=== PATIENT | male | born 2000 | race Caucasian/White ===

== ENCOUNTER 2021-06-25 13:57 | Emergency (ER) | payer OTHER, SELFPAY ==
--- NOTE | ~2021-06-25 | CT_ITS ---
EXAMINATION: CTA chest PE abdomen pel DATE: 06/25/2021 16:10 FAMILY PRACTICE MD INDICATION: Shortness of breath. TECHNIQUE: Computed tomographic angiography (CTA) of the chest was performed with 100 mL Omnipaque-35 0 intravenous contrast. The dose-length product was 548.71 mGy-cm. Maximum intensity projection 3D-re constructions of the aorta and other arteries were constructed by the technologist on a separate work station. COMPARISON: None. FINDINGS: Study is technically adequate without evidence for pulmonary embolism. No evidence for aort ic aneurysm or dissection. Heart size is normal. No thoracic lymphadenopathy. There are reticulonodul ar densities in the lingula, most likely infectious. No pneumothorax. No endobronchial lesions. No ac blair osseous abnormality. IMPRESSION: 1. Reticulonodular densities of the lingula, most likely infectious. 2: No evidence for pulmonary embolism. Reviewed, dictated and finalized at location A. LY PRACTICE MD
[2021-06-25 14:04] VITALS: BP 135/64; PULSE 86; RESP 18; TEMP 36.9; O2SAT 99
--- NOTE | 2021-06-25 14:06 | ECG_ITS ---
Measurements Intervals [place] Rate: 85 P: -87 GA: 128 QRS: 81 QRSD: 87 T: 56 QT: 348 QTc: 416 Interpretive Statements ECTOPIC ATRIAL RHYTHM NONSPECIFIC ST ELEVATION IN ANTEROLAT/INF LEADS BASELINE WANDER- II, III ABNORMAL ECG Electronically Signed On 06-25-2021 17:36:41 SURG RN by Jimmy Gifford D.O.
[2021-06-25 14:28] LABS: Basophils Percent Auto 0.5 % (0.2-1.2); Eosinophils Absolute Auto 0.2 K/mm3 (0-0.3); Eosinophils Percent Auto 4.7 % (0-4.4); Hematocrit 43.2 % (42.0-52.0); Immature Granulocyte Absolute 0.01 K/mm3 (0.00-0.031); Immature Granulocyte Percent A 0.2 % (0-0.5); Lymphocytes Absolute Auto 1.45 K/mm3 (0.9-3.2); Lymphocytes Percent Auto 36.1 % (18.3-44.2); Mean Corpuscular HGB Conc 34.7 g/dl (32-36); Mean Corpuscular Volume 89.3 fl (80-100); Mean Platelet Volume 9.7 fl (7.4-10.4); Monocytes Absolute Auto 0.6 K/mm3 (0.1-0.6); Monocytes Percent Auto 14.9 % (2.6-8.5); Neutrophils Absolute Auto 1.8 K/mm3 (1.3-6.7); Neutrophils Percent Auto 43.6 % (45.5-73.1); Platelet Count Result 190 k/mm3 (150-375); Red Blood Count 4.84 M/mm3 (4.6-6.20); Red Cell Distribution Width 11.9 % (11.5-14.5)
[2021-06-25 14:31] LABS: Add Urine Microscopic? YES; Appearance Urine Cloudy (Clear); Bilirubin Urine Negative (Negative); Blood Urine Negative (Negative); Color Urine Yellow (Yellow); Glucose Urine UA 1+ mg/dL (Negative); Ketones Urine Negative (Negative); Leukocyte Esterase Ur Negative LEU/UL (Negative); Nitrate Urine Negative (Negative); Protein Urine Negative (Negative); RBC Urine 0-2 /hpf (0-2); Specific Grav Ur 1.019 (1.001-1.035); Urobilinogen Urine Negative mg/dL (<2.0); WBC Urine 0-3 /hpf
[2021-06-25 14:39] LABS: Alanine Aminotransferase 22 U/L (4-50); Albumin Level 4.5 g/dL (3.7-5.6); Alkaline Phosphatase 52 U/L (58-237); Anion Gap 6 mmol/L (8-16); Aspartate Amino Transferase 27 U/L (17-59); Bilirubin,Total 0.4 mg/dL (0.2-1.3); Blood Urea Nitrogen 12 mg/dL (8-21); Calcium 9.5 mg/dL (8.9-10.7); Carbon Dioxide 26 mmol/L (22-30); Chloride 104 mmol/L (98-107); Estimated CRCL calculation 120 ml/min; Estimated Glomerular Filt Rate > 60; Glucose 77 mg/dL (65-110); Potassium 4.1 mmol/L (3.4-5.0); Sodium 136 mmol/L (134-143)
--- NOTE | 2021-06-25 14:53 | ED.GENADULT ---
HPI - General Adult General Chief complaint: Urogenital-Male Stated complaint: right flank pain Time Seen by Provider: 06/25/21 14:50 Source: patient and RN notes reviewed Limitations: no limitations and clinical condition History of Present Illness HPI narrative: Patient is 20 years old white male presents with right lower rib and right flank pain posteriorly started patient been working out in the gym for months Review of Systems Review of Systems: CONSTITUTIONAL: Denies fever, chills, or sweats. EYES: Denies visual changes, redness, or discharge. ENT: Denies rhinorrhea, congestion, sore throat, or otalgia. CARDIOVASCULAR: Denies chest pain, palpitations, or edema. RESPIRATORY: Denies cough or dyspnea. GASTROINTESTINAL: Denies abdominal pain, nausea, vomiting, or diarrhea. GENITOURINARY: Denies dysuria or hematuria. SKIN: Denies rash or itching. MUSCULOSKELETAL: Denies back pain, joint pain, or myalgia. NEUROLOGIC: Denies headache, numbness, or weakness. PSYCHIATRIC: Denies anxiety or depression. Exam Narrative: General appearance: Well-developed, well-nourished Skin: Normal color Head: Normocephalic, nontraumatic Eyes: Clear conjunctiva ENT: Oropharynx normal, ears normal, nose normal Neck: Supple, nontender Chest and respiratory: Airway patent, no respiratory distress, no accessory muscle use Heart: Regular rate/rhythm Abdomen: Soft, nontender, no organomegaly, quiet bowel sounds Vascular: Normal peripheral pulses, normal capillary refill. Musculoskeletal: Normal range of motion, nontender back Neurologic: Alert and oriented ?3, MESSAGING ARCHITECT is normal as tested, no gross motor deficit Course Course Emergency Course: Stable Vital Signs Vital signs: Vital Signs Temperature 36.9 C 06/25/21 14:04 Pulse Rate 86 06/25/21 14:04 Respiratory Rate 18 06/25/21 14:04 Blood Pressure 135/64 06/25/21 14:04 Pulse Oximetry 99 06/25/21 14:04 Temperature 36.9 C 06/25/21 14:04 Pulse Rate 86 06/25/21 14:04 Respiratory Rate 18 06/25/21 14:04 Blood Pressure 135/64 06/25/21 14:04 Pulse Oximetry 99 06/25/21 14:04 Medical Decision Making MDM Narrative Medical decision making narrative: Musculoskeletal pain versus pulmonary embolism Work-up today showed no significant findings to explain patient condition. The CAT scan report showing possible infectious process, Patient does not have any fever, normal white count, denies any coughing or chest pain. Musculoskeletal pain is my concern. Patient work out in the gym daily Differential Diagnosis Differential Diagnosis: Musculoskeletal pain, pulmonary embolism Vital Signs Vital Signs: Vital Signs Temperature 36.9 C 06/25/21 14:04 Pulse Rate 86 06/25/21 14:04 Respiratory Rate 18 06/25/21 14:04 Blood Pressure 135/64 06/25/21 14:04 Pulse Oximetry 99 06/25/21 14:04 Temperature 36.9 C 06/25/21 14:04 Pulse Rate 86 06/25/21 14:04 Respiratory Rate 18 06/25/21 14:04 Blood Pressure 135/64 06/25/21 14:04 Pulse Oximetry 99 06/25/21 14:04 Lab Data Result diagrams: 06/25/21 14:15 06/25/21 14:15 Labs: Lab Results 06/25/21 06/25/21 06/25/21 Range/Units 14:15 14:15 14:19 WBC 4.0 L (4.5-10.0) K/mm3 RBC 4.84 (4.6-6.20) M/mm3 Hgb 15.0 (14.0-18.0) g/dL Hct 43.2 (42.0-52.0) % MCV 89.3 (80-100) fl MCH 31.0 (26-34) pg MCHC 34.7 (32-36) g/dl RDW 11.9 (11.5-14.5) % Plt Count 190 (150-375) k/mm3 MPV 9.7 (7.4-10.4) fl Immature Gran % (Auto) 0.2 (0-0.5) % Neut % (Auto) 43.6 L (45.5-73.1) % Lymph % (Auto) 36.1 (18.3-44.2) % [place] % (Auto) 14.9 H (2.6-8.5) % Eos % (Au
== END 2021-06-25 16:55 | disposition home or self-care (01) ==
PROVIDERS: Emergency Medicine; Emergency Provider Emergency Medicine
DX: R10.9 Unspecified abdominal pain (principal); R94.31 Abnormal electrocardiogram [ECG] [EKG]
CPT/HCPCS: 36415; 71275; 74177; 80053; 81001; 85025; 93005; 99284; Q9967

== ENCOUNTER 2021-10-11 14:12 | Emergency (ER) | payer OTHER, SELFPAY ==
[2021-10-11 14:20] VITALS: BP 122/50; PULSE 109; RESP 16; TEMP 37.9; O2SAT 99
--- NOTE | 2021-10-11 14:21 | ED.URI ---
HPI - URI/Sore Throat General Chief Complaint: Upper Respiratory Infection Stated Complaint: STUFFY/COUGH/FEVER/CHILLS Time Seen by Provider: 10/11/21 14:25 Source: patient Mode of arrival: ambulatory Limitations: no limitations History of Present Illness HPI Narrative: Mr. Perez is a 21-year-old male patient presenting to the clinic today with complaint of cough, runny nose, fever, and body aches x4 to 5 days. He reports his fever just started yesterday but does not know how high his fever has been. He denies any known exposure to anybody with Covid, flu, or strep MD elicited complaint: fever, cough and nasal congestion Related Data Home Medications Medication Instructions Recorded Confirmed No Home Medications 10/11/21 10/11/21 Allergies Allergy/AdvReac Type Severity Reaction Status Date / Time No Known Allergies Allergy Verified 10/11/21 14:19 Review of Systems Review of Systems: Pertinent positives per HPI. Patient denies any rash, headache, visual changes, dizziness, shortness of breath, chest pain, palpitations, nausea, vomiting, diarrhea, constipation, abdominal pain, or any urinary issues. PMFSH Comments At the time of my signature, I reviewed and agree with the nursing past medical, surgical, social, and family history. There is no relevant family history pertinent to the patient complaint. Exam Narrative: General: Well-developed, well nourished, in no apparent distress Head: Normocephalic, atraumatic Eyes: Pupils equally round and reactive to light bilaterally, EOM intact, sclera and conjunctive clear, no discharge, lids normal Ears: TMs intact and clear, ear canals clear, no drainage, grossly hearing normal. Nose: Nares patent, clear nasal discharge, moderate inflammation anterior and posterior turbinates, no sinus tenderness. Mouth: Oral pharynx without lesions or masses, good dentition, MMM. Postnasal drip Neck: Supple, trachea midline, no enlargement of anterior or posterior cervical nodes, no thyroid masses or goiter palpable. Cardio: Regular rate and rhythm, s1 and s2 normal, no murmur appreciated. Resp: Clear to auscultation bilaterally, no rhonchi, rales, wheezing or rubs Course Course Emergency Course: Portions of this record may have been created with voice recognition software. Level of Care: Express Care Visit Vital Signs Vital signs: Vital Signs Temperature 37.9 C H 10/11/21 14:20 Pulse Rate 109 H 10/11/21 14:20 Respiratory Rate 16 10/11/21 14:20 Blood Pressure 122/50 L 10/11/21 14:20 Pulse Oximetry 99 10/11/21 14:20 Temperature 37.9 C H 10/11/21 14:20 Pulse Rate 109 H 10/11/21 14:20 Respiratory Rate 16 10/11/21 14:20 Blood Pressure 122/50 L 10/11/21 14:20 Pulse Oximetry 99 10/11/21 14:20 Vital signs reviewed MDM - URI/Sore Throat MDM Narrative Medical decision making narrative: Upon assessment it was decided to go ahead and obtain a Covid swab and flu swab on patient. Covid and influenza testing was negative, suggestive of a viral syndrome/URI will have patient treat using supportive measures. Work note given. Differential Diagnosis Differential diagnosis: Likely upper respiratory infection, sinusitis, viral infection, influenza and pharyngitis Discharge Plan Discharge Clinical Impression: Viral syndrome Upper respiratory infection Qualifiers: URI type: unspecified viral URI Qualified Code(s): J06.9 - Acute upper respiratory infection, unspecified Patient Disposition: Home, Self-Care Condition: Stable Instructions: Viral Syndrome (ED), Cold Symptoms (ED) Additional Instructions: Increase fluids and stay well hydrated. Tylenol/motrin for pain/fever Flonase and OTC antihistamines as directed Vicks vapor rub to open sinuses Sinus rinses for congestion Cepacol spray, cough drops, throat lozenges, warm tea with honey/lemon, gargle salt water to soothe throat BRAT diet for diarrhea Clear liquids x 24 hours th
== END 2021-10-11 14:54 | disposition home or self-care (01) ==
PROVIDERS: Emergency Provider Nurse Practitioner Family
DX: B34.9 Viral infection, unspecified (principal); J06.9 Acute upper respiratory infection, unspecified; Z86.711 Personal history of pulmonary embolism
CPT/HCPCS: 87426; 87804; 99213; C9803; G0463

== ENCOUNTER 2023-11-05 00:45 | Emergency (ER) | payer OTHER, SELFPAY ==
--- NOTE | ~2023-11-05 | XR_ITS ---
Portable chest x-ray Comparison: None Clinical History: Chest pain Findings: Lungs are clear, without focal consolidation or pleural effusion. Cardiomediastinal silho uette is unremarkable. Bones and soft tissues are unremarkable. Impression: Normal chest. Reviewed, dictated and finalized at location M. Impression: Normal chest.
--- NOTE | ~2023-11-05 | CT_ITS ---
Clinical Indication: Chest pain CT Scan of the Chest with Contrast: Technique: Contiguous sections were acquired throughout the chest after intravenous administration of 100 cc of Omnipaque 350. Dose reduction technique was used on this scan by utilizing automated expos ure control and iterative reconstruction technique. The dose-length product (DLP) was 306.79 mGy-cm. Findings: There is no evidence of any significant mediastinal, hilar or axillary lymphadenopathy. There is no f illing defect in the pulmonary arterial tree to suggest pulmonary embolus. There is no evidence of ao rtic dissection or aneurysm. There is no evidence of pleural or pericardial effusion. There is focal patchy ground glass opacity in the left lower lobe, compatible with focal pneumonia. T here are small nodules in the lingula, likely chronic based on report from prior exam dated 1.. Images through the upper abdomen reveal no abnormalities. Impression: No evidence of pulmonary embolus, aortic dissection, or aortic aneurysm. Focal left lower lobe pneumonia. 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 Reviewed, dictated and finalized at location . Impression: No evidence of pulmonary embolus, aortic dissection, or aortic aneurysm. Focal left lower lobe pneumonia. 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
[2023-11-05 00:47] VITALS: BP 150/68; PULSE 80; RESP 15; TEMP 36.7; O2SAT 100
[2023-11-05 01:20] VITALS: O2SAT 98
--- NOTE | 2023-11-05 01:53 | ECG_ITS ---
SEE SCANNED COPY FOR CONFIRMED REPORT MTDD
[2023-11-05 02:31] LABS: Basophils Percent Auto 0.6 % (0.2-1.2); Eosinophils Absolute Auto 0.1 K/mm3 (0-0.3); Eosinophils Percent Auto 2.1 % (0-4.4); Hematocrit 41.9 % (42.0-52.0); Hemoglobin 14.4 g/dL (14.0-18.0); Immature Granulocyte Absolute 0.01 K/mm3 (0.00-0.031); Immature Granulocyte Percent A 0.2 % (0-0.5); Lymphocytes Absolute Auto 2.83 K/mm3 (0.9-3.2); Lymphocytes Percent Auto 43.1 % (18.3-44.2); Mean Corpuscular HGB Conc 34.4 g/dl (32-36); Mean Corpuscular Hemoglobin 29.6 pg (26-34); Mean Corpuscular Volume 86.2 fl (80-100); Mean Platelet Volume 9.5 fl (7.4-10.4); Monocytes Absolute Auto 0.8 K/mm3 (0.1-0.6); Monocytes Percent Auto 11.7 % (2.6-8.5); Neutrophils Absolute Auto 2.8 K/mm3 (1.3-6.7); Neutrophils Percent Auto 42.3 % (45.5-73.1); Platelet Count Result 198 k/mm3 (150-375); Red Blood Count 4.86 M/mm3 (4.6-6.20); Red Cell Distribution Width 12.4 % (11.5-14.5); White Blood Count 6.6 K/mm3 (4.5-10.0)
[2023-11-05 02:42] LABS: Alanine Aminotransferase 21 U/L (6-50); Albumin Level 4.3 g/dL (3.5-5.1); Alkaline Phosphatase 50 U/L (38-126); Anion Gap 5 mmol/L (4-12); Aspartate Amino Transferase 42 U/L (17-59); Bilirubin,Total 0.4 mg/dL (0.2-1.3); Blood Urea Nitrogen 16 mg/dL (9-20); Calcium 9.2 mg/dL (8.4-10.2); Carbon Dioxide 26 mmol/L (22-30); Chloride 105 mmol/L (98-107); Estimated CRCL calculation 117 ml/min; Estimated Glomerular Filt Rate > 60; Glucose 91 mg/dL (65-110); Sodium 136 mmol/L (137-145)
[2023-11-05 02:50] LABS: NT Pro B Type Natriuretic Pept 25 pg/mL (19.9-100)
[2023-11-05 02:53] LABS: Troponin I < 0.012 ng/mL (0.000-0.034)
[2023-11-05 02:59] LABS: D Dimer 0.58 ug/mL (<0.48)
[2023-11-05 03:58] VITALS: BP 119/59; PULSE 75; RESP 13; O2SAT 99
--- NOTE | 2023-11-05 04:20 | ED.GENADULT ---
HPI - General Adult General Chief complaint: Unspecified Stated complaint: side pain/SOB/hx of clots Time Seen by Provider: 11/05/23 01:45 History of Present Illness HPI narrative: Patient is a 23-year-old gentleman presents emergency department with chief complaint of right sided pleuritic chest pain. The patient reports that started having pain this evening after he was moving around the patient states that it hurts whenever takes deep breath. 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 Patient states that he wanted to have a D-dimer checked case he had a blood clot. Related Data Allergies Allergy/AdvReac Type Severity Reaction Status Date / Time No Known Allergies Allergy Verified 11/05/23 00:50 Review of Systems Review of Systems: A 10 system review of systems was completed on the patient and is negative except for what is stated in the HPI. Nursing and ancillary documentation was reviewed. Exam Narrative: GENERAL: Well-appearing, well-nourished, and in no acute distress. HEAD: Normocephalic, atraumatic. EYES: PERRLA and EOMI. ENT: Nares clear, no rhinorrhea or epistaxis. Mucous membranes moist. NECK: Supple. CHEST: Clear to auscultation. No respiratory distress. HEART: Regular rate and rhythm. No murmur heard. Normal peripheral pulses. ABDOMEN: Soft, nontender, nondistended, normal active bowel sounds. EXTREMITIES: Normal range of motion. No edema. SKIN: Warm, dry, no rash. NEURO: No focal deficits. Alert and oriented x3. PSYCH: Normal mood and affect. Course Vital Signs Vital signs: Vital Signs Temperature 36.7 C 11/05/23 00:47 Pulse Rate 80 11/05/23 00:47 Respiratory Rate 15 11/05/23 00:47 Blood Pressure 150/68 H 11/05/23 00:47 Pulse Oximetry 100 11/05/23 00:47 Oxygen Delivery Room Air 11/05/23 00:47 Temperature 36.7 C 11/05/23 00:47 Pulse Rate 75 11/05/23 03:58 Respiratory Rate 13 11/05/23 03:58 Blood Pressure 119/59 L 11/05/23 03:58 Pulse Oximetry 99 11/05/23 03:58 Oxygen Delivery Room Air 11/05/23 00:47 Medical Decision Making [facility] Narrative Medical decision making narrative: Differential diagnosis includes pulmonary embolism, pleuritic pain, pneumonia, EKG showed no evidence of acute ischemic changes The patient was not tachycardic not hypoxic a D-dimer was ordered which was 0.5 day due to this a CT PE protocol was ordered. Troponin was negative BNP was negative. CTA chest showed No evidence of pulmonary embolus, aortic dissection, or aortic aneurysm. Focal left lower lobe pneumonia. 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 Patient was started on cefdinir and Zithromax Vital Signs Vital Signs: Vital Signs Temperature 36.7 C 11/05/23 00:47 Pulse Rate 80 11/05/23 00:47 Respiratory Rate 15 11/05/23 00:47 Blood Pressure 150/68 H 11/05/23 00:47 Pulse Oximetry 100 11/05/23 00:47 Oxygen Delivery Room Air 11/05/23 00:47 Temperature 36.7 C 11/05/23 00:47 Pulse Rate 75 11/05/23 03:58 Respiratory Rate 13 11/05/23 03:58 Blood Pressure 119/59 L 11/05/23 03:58 Pulse Oximetry 99 11/05/23 03:58 Oxygen Delivery Room Air 11/05/23 00:47 Lab Data 11/05/23 02:25 11/05/23 02:25 Labs: Lab Results 11/05/23 Range/Units 02:25 WBC 6.6 (4.5-10.0) K/mm3 RBC 4.86 (4.6-6.20) M/mm3 Hgb 14.4 (14.0-18.0) g/dL Hct 41.9 L (42.0-52.0) % MCV 86.2 (80-100) fl MCH 29.6 (26-34) pg MCHC 34.4 (32-36) g/dl RDW 12.4 (11.5-14.5) % Plt Count 198 (150-375) k/mm3 MPV 9.5 (7.4-10.4) fl Immature Gran % (Auto) 0.2 (0-0.5) % Neut % (Auto) 42.3 L (45.5-73.1) % Lymph % (Auto) 43.1 (18.3-44.2) % [place] % (Auto) 11.7 H (2.6-8.5) % Eos % (Auto)
== END 2023-11-05 05:58 | disposition home or self-care (01) ==
PROVIDERS: Emergency Provider Emergency Medicine
DX: J18.9 Pneumonia, unspecified organism (principal)
CPT/HCPCS: 36415; 71045; 71275; 80053; 83880; 84484; 85025; 85380; 93005; 99284; Q9967